=== PATIENT | female | born 1945 | race Caucasian/White ===

== ENCOUNTER 2017-07-27 09:28 | Outpatient (CLI) | payer MEDICARE, MEDICAID ==
--- NOTE | 2017-07-27 09:56 | CT ---
CT BRAIN WITHOUT CONTRAST: History: Dizziness. FINDINGS: Comparison made with 08-11-13. No evidence of acute infarction, midline shift, or abnormal extraaxial fluid collections are seen. T he ventricular size is stable and the vascular cisterns patent. Changes of mild chronic small vessel ischemic disease are again seen. The prominent dural based calcification in the interhemispheric fa lx is again seen. The bony calvarium is intact. There is mucosal disease in the paranasal sinuses. IMPRESSION: No CT evidence of acute intracranial process. POS: [facility]
== END 2017-07-27 09:29 | disposition home or self-care (01) ==
LOC: NAV CT 09:28
PROVIDERS: ATTEND Internal Medicine
DX: R42 Dizziness and giddiness (principal)
CPT/HCPCS: 70450

== ENCOUNTER 2021-02-01 09:06 | Emergency (ER) | payer MEDICARE | END 2021-02-01 10:50 | disposition short-term general hospital (02) | LOC: NAV ERS 09:06 | DX: M79.661 Pain in right lower leg (principal); M79.651 Pain in right thigh; E11.9 Type 2 diabetes mellitus without complications; E78.5 Hyperlipidemia, unspecified; I10 Essential (primary) hypertension; Z79.899 Other long term (current) drug therapy | CPT/HCPCS: 99284 ==

== ENCOUNTER 2021-02-26 14:30 | Outpatient (CLI) | payer MEDICARE ==
[2021-02-26 14:58] LABS: Anion Gap 15 mmol/L (10-20); BUN (Urea Nitrogen) 27 mg/dL (9.8-20.1); Calc. Creatinine Clearance 0 mL/min (70-130); Calcium 8.3 mg/dL (7.8-10.44); Carbon Dioxide 23 mmol/L (23-31); Chloride 100 mmol/L (98-107); Glucose 233 mg/dL (83-110); Potassium 4.2 mmol/L (3.5-5.1); Sodium 134 mmol/L (136-145)
== END 2021-02-26 14:31 | disposition home or self-care (01) ==
LOC: NAV LABSP 14:30
PROVIDERS: ATTEND Student in an Organized Health Care Education/Training Program
DX: I11.0 Hypertensive heart disease with heart failure (principal); I50.23 Acute on chronic systolic (congestive) heart failure; I48.91 Unspecified atrial fibrillation; E11.9 Type 2 diabetes mellitus without complications
CPT/HCPCS: 80048